=== PATIENT | female | born 1990 ===

== ENCOUNTER 2019-07-31 09:56 | Inpatient (IN) ==
[2019-07-31] MEDS: LACTATED RINGERS 1,000 ML IV SCH ×3 (10:45→15:33)
[2019-07-31] MEDS ORDERED: OXYTOCIN/LR 20 UNIT/1,000 ML BAG IV ONE ×3 (10:55→17:03)
[2019-07-31 11:13] LABS: Basophils % 0.2 % (0.0-0.8); Eosinophils % 0.3 % (0.00-10.9); Hematocrit 36.6 VOL% (35.7-47.0); Hemoglobin 12.6 GM/DL (12.0-16.0); Immature Granulocytes % 0.5 %; Immature Granulocytes Absolute 0.05 #; Lymphocytes # 2.4 10*3/uL (1.4-4.0); Lymphocytes % 22.6 % (21.3-54.2); Mean Corpuscular HGB Conc 34.4 GM/DL (32-36); Mean Corpuscular Volume 82.8 FL (87-102); Mean Platelet Volume 10.9 FL (9.6-12.0); Monocytes % 5.9 % (1.7-12.7); Neutrophils % 70.5 % (38.7-73.9); Platelet Count 246 T/CUMM (130-400); Red Blood Count 4.42 MC/CUMM (3.8-5.5); Red Cell Distribution Width 13.4 % (9.3-17.3); White Blood Count 10.4 T/CUMM (4-12)
[2019-07-31 11:21] LABS: INR 0.8; PT Patient Result 9.2 SECS (9.6-12.2); Partial Thromboplastin Time 26.9 SECS (20.8-36.0)
[2019-07-31 11:30] LABS: Albumin 2.5 G/DL (3.4-5.0); Bilirubin,Total 0.4 MG/DL (0.2-1.0); Calcium 8.7 MG/DL (8.5-10.1); Osmolality,Calculated 276.4 MOS/KG (273-304); Total Protein 7.2 G/DL (6.4-8.3)
[2019-07-31] MEDS ORDERED: hydrALAZINE 20 MG/1 ML VIAL IV ONE ×2 (11:46→12:11)
[2019-07-31] MEDS ORDERED: OXYTOCIN 10 UNIT/ML VIAL IM ONE (12:00)
[2019-07-31] MEDS ORDERED: FAMOTIDINE 20 MG/2 ML VIAL IV ONE (12:00)
[2019-07-31] MEDS ORDERED: CITRIC ACID/SODIUM CITRATE 30 ML UDCUP PO ONE (12:00)
[2019-07-31] MEDS ORDERED: ceFAZolin 2,000 MG in PREMIX 1 EACH IV ONE (12:00)
[2019-07-31] MEDS ORDERED: ONDANSETRON 4 MG/2 ML VIAL ONE ×2 (12:39→17:52)
[2019-07-31] MEDS ORDERED: MEPERIDINE 50 MG/1 ML VIAL ONE (12:39)
[2019-07-31] MEDS ORDERED: ONDANSETRON 4 MG/2 ML VIAL IV ONE (12:40)
[2019-07-31] MEDS ORDERED: MEPERIDINE 50 MG/1 ML VIAL IV ONE (12:40)
[2019-07-31] MEDS ORDERED: OXYTOCIN/LR 30 UNIT/1,000 ML BAG IV ONE (15:45)
[2019-07-31] MEDS ORDERED: TRANEXAMIC ACID 1,000 MG/10 ML VIAL ONE (15:46)
[2019-07-31] MEDS ORDERED: METHYLERGONOVINE 0.2 MG/1 ML AMP ONE (15:46)
[2019-07-31] MEDS ORDERED: miSOPROStol 200 MCG TABLET ONE (15:46)
[2019-07-31] MEDS ORDERED: CARBOPROST TROMETHAMINE 250 MCG/ML AMP IM ONE (15:47)
[2019-07-31 16:32] LABS: Cord Arterial Blood HCO3 25.5 MMOL/L
[2019-07-31 16:35] LABS: Cord Venous Blood HCO3 24.8 MMOL/L; Cord Venous Blood PCO2 46.3 MMHG
[2019-07-31 16:49] LABS: Apearance,Urine CLEAR (Clear); Bacteria,Urine Occasional /HPF (Few); Bilirubin,Urine Negative (Negative); Blood, Urine Negative (Negative); Glucose,Urine (UA) 50 mg/dL (Negative); Hyaline Casts,Urine 1 /LPF (0-3); Ketones,Urine 80 mg/dL (Negative); Mucus,Urine Occasional /LPF (Occasional); Nitrite,Urine Negative (Negative); Protein,Urine 100 MG/DL; RBC,Urine 2 /HPF (0-4); Squamous Epithelial Cell,Urine Occasional /HPF (0-10); Urine Color Amber (Yellow); Urine Specific Gravity 1.024 (1.001-1.035); WBC,Urine 2 /HPF (0-6)
[2019-07-31] MEDS ORDERED: ONDANSETRON 4 MG/2 ML VIAL IV PRN (17:03)
[2019-07-31] MEDS ORDERED: MAGNESIUM HYDROXIDE SUSP 30 ML UDCUP PO PRN (17:03)
[2019-07-31] MEDS ORDERED: SIMETHICONE CHEW 80 MG TABLET PO PRN (17:03)
[2019-07-31] MEDS ORDERED: RHO(D) IMMUNE GLOBULIN 300 MCG SYRINGE IM ONE (17:03)
[2019-07-31] MEDS ORDERED: ACETAMINOPHEN 325 MG TABLET PO PRN (17:03)
[2019-07-31] MEDS ORDERED: BUPIVACAINE SPINAL 0.75% 2 ML AMP SPINAL ONE (17:52)
[2019-07-31] MEDS ORDERED: LABETALOL 100 MG/20 ML VIAL IV ONE (17:52)
[2019-07-31] MEDS ORDERED: MORPHINE 10 MG/10 ML VIAL ONE (17:52)
[2019-07-31] MEDS ORDERED: BUPIVACAINE 0.5% 50 ML VIAL ONE (17:52)
[2019-07-31] MEDS ORDERED: DEXAMETHASONE 4 MG/1 ML VIAL ONE (17:52)
[2019-07-31] MEDS ORDERED: hydrALAZINE 20 MG/1 ML VIAL ONE (18:38)
[2019-07-31] MEDS: hydrALAZINE 20 MG/1 ML VIAL IV PRN ×2 (18:41→18:51)
[2019-07-31] MEDS: DOCUSATE SODIUM 100 MG CAPSULE PO SCH (21:06)
[2019-07-31 23:11] LABS: Basophils % 0.2 % (0.0-0.8); Hematocrit 38.3 VOL% (35.7-47.0); Hemoglobin 13.1 GM/DL (12.0-16.0); Immature Granulocytes % 0.4 %; Immature Granulocytes Absolute 0.08 #; Lymphocytes # 1.3 10*3/uL (1.4-4.0); Lymphocytes % 7.1 % (21.3-54.2); Mean Corpuscular HGB Conc 34.2 GM/DL (32-36); Mean Corpuscular Volume 83.3 FL (87-102); Mean Platelet Volume 10.4 FL (9.6-12.0); Monocytes % 4.6 % (1.7-12.7); Neutrophils % 87.7 % (38.7-73.9); Platelet Count 244 T/CUMM (130-400); Red Cell Distribution Width 13.6 % (9.3-17.3); White Blood Count 18.3 T/CUMM (4-12)
[2019-07-31] MEDS: ceFAZolin 1,000 MG in SYRINGE 1 EACH IV SCH (23:23)
[2019-08-01] MEDS: LACTATED RINGERS 1,000 ML IV SCH ×3 (00:07→05:34)
[2019-08-01 05:14] LABS: Basophils % 0.2 % (0.0-0.8); Hematocrit 31.9 VOL% (35.7-47.0); Hemoglobin 10.7 GM/DL (12.0-16.0); Immature Granulocytes % 0.4 %; Immature Granulocytes Absolute 0.05 #; Lymphocytes # 2.1 10*3/uL (1.4-4.0); Lymphocytes % 16.3 % (21.3-54.2); Mean Corpuscular HGB Conc 33.5 GM/DL (32-36); Mean Corpuscular Volume 83.9 FL (87-102); Mean Platelet Volume 10.6 FL (9.6-12.0); Monocytes % 7.6 % (1.7-12.7); Neutrophils % 75.5 % (38.7-73.9); Platelet Count 223 T/CUMM (130-400); Red Cell Distribution Width 13.6 % (9.3-17.3)
[2019-08-01] MEDS ORDERED: MEASLES/MUMPS/RUBELLA VACCINE 0.5 ML VIAL SUBCUT ONE (05:34)
[2019-08-01] MEDS ORDERED: DIPH/TET/ACEL PERT BOOSTER VACCINE 0.5 ML VIAL IM ONE (05:35)
[2019-08-01] MEDS: IBUPROFEN 800 MG TABLET PO PRN ×2 (06:18→18:08)
[2019-08-01] MEDS: ceFAZolin 1,000 MG in SYRINGE 1 EACH IV SCH (06:54)
[2019-08-01] MEDS: MULTIVITAMIN (PRENATAL) TABLET PO SCH (08:32)
[2019-08-01] MEDS: MAGNESIUM HYDROXIDE SUSP 30 ML UDCUP PO SCH ×2 (08:33→20:21)
[2019-08-01] MEDS: METOCLOPRAMIDE 10 MG TABLET PO SCH ×2 (08:33→16:55)
[2019-08-01] MEDS: DOCUSATE SODIUM 100 MG CAPSULE PO SCH ×2 (08:33→20:21)
[2019-08-01] MEDS: metFORMIN 500 MG TABLET PO SCH ×2 (08:33→16:55)
[2019-08-02] MEDS: IBUPROFEN 800 MG TABLET PO PRN ×3 (02:00→19:49)
[2019-08-02] MEDS: METOCLOPRAMIDE 10 MG TABLET PO SCH ×3 (04:39→17:37)
[2019-08-02] MEDS: metFORMIN 500 MG TABLET PO SCH ×2 (08:08→17:35)
[2019-08-02] MEDS: MULTIVITAMIN (PRENATAL) TABLET PO SCH (08:08)
[2019-08-02] MEDS: DOCUSATE SODIUM 100 MG CAPSULE PO SCH ×2 (08:08→20:22)
[2019-08-02] MEDS: MAGNESIUM HYDROXIDE SUSP 30 ML UDCUP PO SCH ×2 (15:55→20:22)
[2019-08-03] MEDS: METOCLOPRAMIDE 10 MG TABLET PO SCH ×2 (01:31→08:56)
[2019-08-03] MEDS: IBUPROFEN 800 MG TABLET PO PRN (04:03)
[2019-08-03 08:42] VITALS: BP 156/82
[2019-08-03] MEDS: metFORMIN 500 MG TABLET PO SCH (08:55)
[2019-08-03] MEDS: MULTIVITAMIN (PRENATAL) TABLET PO SCH (08:56)
[2019-08-03] MEDS: DOCUSATE SODIUM 100 MG CAPSULE PO SCH (08:56)
[2019-08-03] MEDS: MAGNESIUM HYDROXIDE SUSP 30 ML UDCUP PO SCH (08:57)
== END 2019-08-03 11:55 | disposition home or self-care (01) | DRG 540 ==
LOC: N.LD 09:56 → N.OB 20:25
PROVIDERS: ADMIT Obstetrics & Gynecology; ATTEND Obstetrics & Gynecology
PROC: LDCSECT (ICD-10-PCS; 2019-07-31 14:30)

== ENCOUNTER 2020-09-09 07:00 | Inpatient (IN) ==
[2020-09-09] MEDS ORDERED: FAMOTIDINE 20 MG/2 ML VIAL IV ONE (07:22)
[2020-09-09] MEDS ORDERED: CITRIC ACID/SODIUM CITRATE 30 ML UDCUP PO ONE (07:22)
[2020-09-09] MEDS ORDERED: ceFAZolin 2,000 MG in PREMIX 1 EACH IV ONE (07:22)
[2020-09-09] MEDS: LACTATED RINGERS 1,000 ML IV SCH ×2 (07:32→14:39)
[2020-09-09 07:38] LABS: Basophils % 0.4 % (0.0-0.8); Eosinophils # 0.1 10*3/uL (0.0-0.87); Eosinophils % 0.7 % (0.00-10.9); Hematocrit 35.4 VOL% (35.7-47.0); Hemoglobin 12.2 GM/DL (12.0-16.0); Immature Granulocytes % 0.4 %; Immature Granulocytes Absolute 0.03 #; Lymphocytes # 2.2 10*3/uL (1.4-4.0); Lymphocytes % 31.2 % (21.3-54.2); Mean Corpuscular HGB Conc 34.5 GM/DL (32-36); Mean Corpuscular Volume 86.1 FL (87-102); Mean Platelet Volume 9.7 FL (9.6-12.0); Monocytes % 9.2 % (1.7-12.7); Neutrophils % 58.1 % (38.7-73.9); Platelet Count 281 T/CUMM (130-400); Red Blood Count 4.11 MC/CUMM (3.8-5.5); Red Cell Distribution Width 13.2 % (9.3-17.3); White Blood Count 7.2 T/CUMM (4-12)
[2020-09-09] MEDS ORDERED: METOCLOPRAMIDE 10 MG/10 ML UDCUP PO ONE (10:54)
[2020-09-09] MEDS ORDERED: OXYTOCIN 10 UNIT/ML VIAL IM ONE (10:55)
[2020-09-09] MEDS ORDERED: OXYTOCIN/LR 30 UNIT/1,000 ML BAG IV ONE (10:55)
[2020-09-09] MEDS ORDERED: TRANEXAMIC ACID 1,000 MG/10 ML VIAL ONE (12:46)
[2020-09-09] MEDS ORDERED: CARBOPROST TROMETHAMINE 250 MCG/ML AMP IM ONE (12:46)
[2020-09-09] MEDS ORDERED: miSOPROStoL 200 MCG TABLET ONE (12:46)
[2020-09-09] MEDS ORDERED: METHYLERGONOVINE 0.2 MG/1 ML AMP ONE (12:46)
[2020-09-09] MEDS ORDERED: BUPIVACAINE SPINAL 0.75% 2 ML AMP SPINAL ONE (13:26)
[2020-09-09] MEDS ORDERED: BUPIVACAINE MPF 0.5% /EPI 30 ML VIAL ONE (13:26)
[2020-09-09] MEDS ORDERED: LACTATED RINGERS 1,000 ML IV ONE (13:27)
[2020-09-09] MEDS ORDERED: DEXAMETHASONE 4 MG/1 ML VIAL ONE (13:27)
[2020-09-09] MEDS ORDERED: MORPHINE 10 MG/10 ML VIAL ONE (13:27)
[2020-09-09] MEDS ORDERED: KETOROLAC 30 MG/1 ML VIAL ONE (13:27)
[2020-09-09] MEDS ORDERED: ONDANSETRON 4 MG/2 ML VIAL ONE (13:27)
[2020-09-09] MEDS ORDERED: METOCLOPRAMIDE 10 MG/2 ML VIAL ONE (13:27)
[2020-09-09 15:32] LABS: Bacteria,Urine Occasional /HPF (Few); Bilirubin,Urine Negative (Negative); Blood, Urine Negative (Negative); Glucose,Urine (UA) >=500 mg/dL (Negative); Ketones,Urine 5 mg/dL (Negative); Mucus,Urine Occasional /LPF (Occasional); Nitrite,Urine Positive (Negative); Protein,Urine 30 MG/DL; RBC,Urine 3 /HPF (0-4); Squamous Epithelial Cell,Urine Moderate /HPF (0-10); Urine Appearance CLOUDY (Clear); Urine Color Amber (Yellow); Urine Specific Gravity 1.036 (1.001-1.035); WBC,Urine 14 /HPF (0-6)
[2020-09-09 15:43] LABS: Cord Venous Blood HCO3 24.7 MMOL/L; Cord Venous Blood PCO2 49.4 MMHG; Cord Venous Blood PO2 28.5 MMHG
[2020-09-09] MEDS ORDERED: MAGNESIUM HYDROXIDE SUSP 30 ML UDCUP PO PRN (15:45)
[2020-09-09] MEDS ORDERED: RHO(D) IMMUNE GLOBULIN 300 MCG SYRINGE IM ONE (15:45)
[2020-09-09] MEDS ORDERED: ACETAMINOPHEN 325 MG TABLET PO PRN (15:45)
[2020-09-09] MEDS ORDERED: IBUPROFEN 800 MG TABLET PO PRN (15:45)
[2020-09-09] MEDS ORDERED: ONDANSETRON 4 MG/2 ML VIAL IV PRN (15:45)
[2020-09-09] MEDS ORDERED: OXYTOCIN/LR 20 UNIT/1,000 ML BAG IV ONE (15:45)
[2020-09-09] MEDS ORDERED: LACTATED RINGERS 1,000 ML IV SCH (16:00)
[2020-09-09] MEDS: DOCUSATE SODIUM 100 MG CAPSULE PO SCH (21:15)
[2020-09-09] MEDS ORDERED: diphenhydrAMINE 50 MG/1 ML VIAL IM PRN (22:58)
[2020-09-09 23:31] LABS: Basophils % 0.2 % (0.0-0.8); Hematocrit 32.1 VOL% (35.7-47.0); Hemoglobin 11.2 GM/DL (12.0-16.0); Immature Granulocytes % 0.7 %; Lymphocytes # 1.3 10*3/uL (1.4-4.0); Lymphocytes % 9.8 % (21.3-54.2); Mean Corpuscular HGB Conc 34.9 GM/DL (32-36); Mean Corpuscular Volume 84.9 FL (87-102); Mean Platelet Volume 9.9 FL (9.6-12.0); Monocytes % 4.4 % (1.7-12.7); Neutrophils % 84.9 % (38.7-73.9); Platelet Count 246 T/CUMM (130-400); Red Blood Count 3.78 MC/CUMM (3.8-5.5); Red Cell Distribution Width 12.7 % (9.3-17.3); White Blood Count 13.5 T/CUMM (4-12)
[2020-09-09] MEDS ORDERED: diphenhydrAMINE 50 MG/1 ML VIAL IV PRN (23:45)
[2020-09-10] MEDS ORDERED: diphenhydrAMINE CAP 25 MG CAPSULE PO PRN (04:56)
[2020-09-10 05:42] LABS: Basophils % 0.2 % (0.0-0.8); Eosinophils % 0.1 % (0.00-10.9); Hematocrit 30.1 VOL% (35.7-47.0); Hemoglobin 10.3 GM/DL (12.0-16.0); Immature Granulocytes % 0.5 %; Immature Granulocytes Absolute 0.05 #; Lymphocytes # 2.3 10*3/uL (1.4-4.0); Lymphocytes % 21.6 % (21.3-54.2); Mean Corpuscular HGB Conc 34.2 GM/DL (32-36); Mean Corpuscular Volume 86.2 FL (87-102); Mean Platelet Volume 10.2 FL (9.6-12.0); Monocytes % 8.6 % (1.7-12.7); Platelet Count 260 T/CUMM (130-400); Red Blood Count 3.49 MC/CUMM (3.8-5.5); Red Cell Distribution Width 12.8 % (9.3-17.3); White Blood Count 10.6 T/CUMM (4-12)
[2020-09-10] MEDS ORDERED: ceFAZolin 1,000 MG in SYRINGE 1 EACH IV SCH (07:00)
[2020-09-10] MEDS ORDERED: GLUCAGON 1 MG VIAL IM PRN (07:56)
[2020-09-10] MEDS ORDERED: DEXTROSE 50% 25 GM/50 ML VIAL IV PRN (07:56)
[2020-09-10] MEDS: SIMETHICONE CHEW 80 MG TABLET PO PRN ×2 (08:57→19:46)
[2020-09-10] MEDS: MULTIVITAMIN (PRENATAL) TABLET PO SCH (08:57)
[2020-09-10] MEDS: DOCUSATE SODIUM 100 MG CAPSULE PO SCH ×3 (08:57→21:53)
[2020-09-10] MEDS ORDERED: INFLUENZA VIRUS VACCINE 0.5 ML SYRINGE IM ONE (09:54)
[2020-09-10] MEDS ORDERED: INSULIN REGULAR 100 UNIT/ML SUBCUT SCH (11:30)
[2020-09-10] MEDS: INSULIN REGULAR 100 UNIT/ML SUBCUT SCH ×4 (12:10→22:02)
[2020-09-10] MEDS: IBUPROFEN 800 MG TABLET PO PRN (19:47)
[2020-09-11] MEDS: IBUPROFEN 800 MG TABLET PO PRN (03:13)
[2020-09-11] MEDS ORDERED: metFORMIN 500 MG TABLET PO SCH (08:00)
[2020-09-11] MEDS: MULTIVITAMIN (PRENATAL) TABLET PO SCH (09:08)
[2020-09-11] MEDS: DOCUSATE SODIUM 100 MG CAPSULE PO SCH (09:09)
[2020-09-11] MEDS: INSULIN REGULAR 100 UNIT/ML SUBCUT SCH (09:51)
[2020-09-11] MEDS ORDERED: INFLUENZA VIRUS VACCINE 0.5 ML SYRINGE IM ONE (12:18)
[2020-09-11 12:31] VITALS: BP 130/85
== END 2020-09-11 15:00 | disposition home or self-care (01) | DRG 540 ==
LOC: N.LD 07:00 → N.OB 21:35
PROVIDERS: ADMIT Obstetrics & Gynecology; ATTEND Obstetrics & Gynecology